=== PATIENT | male | born 1995 | race Caucasian/White ===

== ENCOUNTER → 2017-01-19 | Outpatient (CLI) | payer OTHER ==
[~2017-01-19] MED LIST: COLC0.6T54 PO; METO25TA3 PO
[2017-01-19 16:40] LABS: BASO % 0.3 %; BASO ABS # 0.02 K/uL (0-0.2); COMPLETE YES; HEMATOCRIT 42.3 % (42-52); IG% 0.3 %; LYMPH % 37.1 %; LYMPH ABS # 2.62 K/uL (1.2-3.4); MEAN CELL VOLUME 86.3 fL (80-100); MEAN CORPUSCULAR HGB CONC 35.9 g/dl (32-36); MEAN PLATELET VOLUME 9.6 fL (7.4-10.4); MONO % 7.8 %; NEUT % 52.5 %; PLATELET COUNT 246 K/uL (130-400); WHITE BLOOD COUNT 7.07 K/uL (4.8-10.8)
[2017-01-19 17:19] LABS: ALT/SGPT 28 U/L (12-78); AST/SGOT 15 U/L (15-37); BLOOD UREA NITROGEN 19 mg/dl (7-18); CALCIUM 9.6 mg/dl (8.5-10.1); CARBON DIOXIDE 29 mmol/L (21-32); CHLORIDE 105 mmol/L (98-107); GLUCOSE 103 mg/dl (70-99); POTASSIUM 3.9 mmol/L (3.5-5.1); SODIUM 140 mmol/L (136-145)
[2017-01-19 17:28] LABS: ALB/GLOB RATIO 1.5 (0.9-2); ALKALINE PHOSPHATASE 118 U/L (45-117); TOTAL IRON BINDING CAPACITY 386 mcg/dl (250-450)
== END | disposition home or self-care (01) ==
LOC: C.LAB1850 15:40
PROVIDERS: ATTEND Physician Assistant
DX: R53.81 Other malaise (principal)

== ENCOUNTER → 2017-01-20 | Outpatient (CLI) | payer OTHER | END | disposition home or self-care (01) | LOC: C.LAB1850 14:47 | PROVIDERS: ATTEND Internal Medicine Cardiovascular Disease | DX: R53.81 Other malaise (principal) ==